=== PATIENT | female | born 1975 | race Two or more races ===

== ENCOUNTER 2018-07-06 09:31 | Outpatient (CLI) | payer OTHER | END 2018-07-06 09:33 | disposition home or self-care (01) | LOC: SONOGRAMA 09:31 | DX: M19.90 Unspecified osteoarthritis, unspecified site (principal) ==

== ENCOUNTER 2022-02-14 08:31 | Outpatient (CLI) | payer OTHER | END 2022-02-14 08:47 | disposition home or self-care (01) | LOC: SONOGRAMA 08:31 | PROVIDERS: ATTEND Obstetrics & Gynecology Maternal & Fetal Medicine | DX: N84.0 Polyp of corpus uteri (principal) ==

== ENCOUNTER 2024-06-15 10:21 | Outpatient (CLI) | payer OTHER ==
[~2024-06-15 10:21] MED LIST: CLONAZEPAM0.25 MG PO; DICLOFENAC SODI75 MG PO; SYNTHROID50 MCG PO; TOPROL XL50 M1; WELLBUTRIN XL300 MG PO
== END 2024-06-15 10:30 | disposition home or self-care (01) ==
LOC: MAMO-SONO 10:21
PROVIDERS: ATTEND Obstetrics & Gynecology Maternal & Fetal Medicine
DX: N63 Unspecified lump in breast (principal); Z12.31 Encounter for screening mammogram for malignant neoplasm of breast; N64.4 Mastodynia; N60.11 Diffuse cystic mastopathy of right breast